=== PATIENT | female | born 1990 | race Caucasian/White ===

== ENCOUNTER → 2023-12-05 09:59 | Outpatient (BNVA) | payer OTHER, SELFPAY | PROVIDERS: PCP Family Medicine; Visit Provider Family Medicine | DX: Z34.90 Encounter for supervision of normal pregnancy, unspecified, unspecified trimester (principal) | CPT/HCPCS: 80307; 81000; 81025; 82306; 82607; 82746; 84144; 84425; 84443; 84590; 84591; 84597; 84630; 84702; 85025; 86592; 86705; 86706; 86762; 86803; 86850; 86900; 87086; 87340; 87491; 87591; 87624; 87806 ==

== ENCOUNTER → 2023-12-13 15:22 | Outpatient (BNVA) | payer OTHER, SELFPAY | PROVIDERS: PCP Family Medicine; Visit Provider Family Medicine | DX: O09.91 Supervision of high risk pregnancy, unspecified, first trimester (principal); Z3A.00 Weeks of gestation of pregnancy not specified | CPT/HCPCS: 84144 ==

== ENCOUNTER 2023-12-18 07:57 | Outpatient (CLI) | payer OTHER, SELFPAY ==
--- NOTE | 2023-12-18 08:15 | US_ITS ---
WS: [id number] EARLY OBSTETRICAL ULTRASOUND (<14 WEEKS). HISTORY: Dating US - next 1-2 weeks if possible COMPARISON: None available. Single intrauterine gestational sac is identified. Cardiac activity at 169 BPM. [place]-rump length inder sures 1.8 cm which corresponds to a gestation of 8w2d. Normal-appearing yolk sac and amnion demonstra dayana. No subchorionic hemorrhage. No free fluid. Both ovaries are identified. The LEFT ovary contains follicles/corpus luteal cyst. The largest measur es 2.7 x 2.8 x 2.1 cm. The smaller 2.5 x 2.1 x 1.9 cm. Normal vascularity. RIGHT ovary is normal size . US/US OB <=14 wk fetus w transvag IMPRESSION: 1. Single intrauterine gestation of 8w2d with an EDC of 07/27/2024. 2. Normal cardiac activity.
== END 2023-12-18 07:58 | disposition home or self-care (01) ==
LOC: RAD 07:57
PROVIDERS: PCP Family Medicine; Visit Provider Family Medicine
DX: Z3A.08 8 weeks gestation of pregnancy (principal); N83.12 Corpus luteum cyst of left ovary
CPT/HCPCS: 76801; 76817

== ENCOUNTER → 2023-12-27 13:38 | Outpatient (BNVA) | payer OTHER, SELFPAY | PROVIDERS: PCP Family Medicine; Visit Provider Family Medicine | DX: O09.91 Supervision of high risk pregnancy, unspecified, first trimester (principal); Z3A.00 Weeks of gestation of pregnancy not specified | CPT/HCPCS: 84144 ==

== ENCOUNTER → 2024-01-02 11:41 | Outpatient (BNVA) | payer OTHER, SELFPAY | PROVIDERS: PCP Family Medicine; Visit Provider Family Medicine | DX: O09.91 Supervision of high risk pregnancy, unspecified, first trimester (principal); Z3A.00 Weeks of gestation of pregnancy not specified | CPT/HCPCS: 84144 ==

== ENCOUNTER → 2024-02-09 12:29 | Outpatient (BNVA) | payer OTHER, SELFPAY | PROVIDERS: PCP Family Medicine; Visit Provider Family Medicine | DX: O09.91 Supervision of high risk pregnancy, unspecified, first trimester (principal); Z3A.00 Weeks of gestation of pregnancy not specified | CPT/HCPCS: 84144 ==

== ENCOUNTER → 2024-03-08 12:24 | Outpatient (BNVA) | payer OTHER, SELFPAY | PROVIDERS: PCP Family Medicine; Visit Provider Family Medicine | DX: O09.91 Supervision of high risk pregnancy, unspecified, first trimester (principal); R79.89 Other specified abnormal findings of blood chemistry | CPT/HCPCS: 84144 ==

== ENCOUNTER 2024-03-12 11:03 | Outpatient (CLI) | payer OTHER, SELFPAY ==
--- NOTE | 2024-03-12 11:15 | USR_ITS ---
PROCEDURE INFORMATION: Exam: US After First Trimester, Transabdominal Exam date and time: 03/12/2024 11:09 AM Age: 34 years old Clinical indication: Screening exam; Routine US, uterus; Additional info: Anatomy US - about 6 weeks from now LABS AND CLINICAL REPORTS: Gestational age (Established): 20 w 3 d Estimated due date (Established): 07/27/2024 TECHNIQUE: Imaging protocol: Real-time transabdominal obstetrical ultrasound of the maternal pelvis and a second or third trimester with image documentation. COMPARISON: US OB <=14 wk fetus w transvag 12/18/2023 8:25 AM FINDINGS: Gestation: Single live intrauterine gestation. heart rate: 145 bpm presentation and position: Vertex Placenta: Unremarkable. No subchorionic bleed. Placenta is anterior Amniotic fluid (Qualitative): Amniotic fluid is normal for gestational age. Amniotic fluid index: Normal amniotic fluid volume ANATOMY: midline falx: Normal/ cerebellum: Normal/ lateral ventricles: Normal/ cisterna magna: Normal/ choroid plexus: Normal/ face: Upper lip is Normal/ heart four-chamber view, heart size and position: Normal/ heart right ventricular outflow tract: Normal/ heart left ventricular outflow tract: Normal/ kidneys: Normal/ stomach: Normal/ urinary bladder: Normal/ spine: Normal/ Umbilical cord and insertion: Normal upper limbs: Normal/ lower limbs: Normal/ external genitalia: Gender determination male BIOMETRY: Gestational age (AUA): 20 weeks 3 days Estimated due date (AUA): 07/27/2024 Estimated weight: 355.7 g. EFW by AC, BPD, FL, HC, Hadlock 1985 Biparietal diameter (BPD): 4.81 cm. EGA (BPD) is 20 w 4 d. 54.5 % percentile Head circumference (HC): 18.01 cm. EGA (HC) is 20 w 3 d. 41.8 % percentile Abdominal circumference (AC): 15.26 cm. EGA (AC) is 20 w 3 d. 45.1 % percentile Femur length (FL): 3.34 cm. EGA (FL) is 20 w 3 d. 42.9 % percentile HC/AC: 1.18. (Normal range: 1.07 - 1.25) FL/HC: 18.55. (Normal range: 16.41 - 20.01) FL/BPD: 69.44 FL/AC: 21.89 MATERNAL: Uterus: Unremarkable. Cervix: Cervical length measures 5.8 cm Right ovary/adnexa: Obscured by lack of adequate acoustic window. Left ovary/adnexa: Obscured by lack of adequate acoustic window. Intraperitoneal space: No intraperitoneal free fluid. US/US OB >= 14 weeks fetus [id number] IMPRESSION: 1. Single living intrauterine gestation 2. Gestational age 20 weeks 3 days LUIS is 07/27/2024 3. Anterior placenta 4. Negative for anatomic deformity in the visible anatomy 5. Normal amniotic fluid volume
== END 2024-03-12 11:04 | disposition home or self-care (01) ==
LOC: RAD 11:04
PROVIDERS: PCP Family Medicine; Visit Provider Family Medicine
DX: O09.91 Supervision of high risk pregnancy, unspecified, first trimester (principal)
CPT/HCPCS: 76805

== ENCOUNTER → 2024-04-30 11:11 | Outpatient (BNVA) | payer OTHER, SELFPAY | PROVIDERS: PCP Family Medicine; Visit Provider Family Medicine | DX: O09.92 Supervision of high risk pregnancy, unspecified, second trimester (principal) | CPT/HCPCS: 82950 ==

== ENCOUNTER 2024-05-13 12:03 | Outpatient (CLI) | payer OTHER, SELFPAY ==
[2024-05-13 12:20] VITALS: RESP 18; TEMP 36.9
[2024-05-13 12:22] VITALS: BP 100/56; PULSE 82
[2024-05-13 12:34] VITALS: RESP 18; BMI 33.7
[2024-05-13 12:36] VITALS: BP 97/59; PULSE 81
[2024-05-13 12:51] VITALS: BP 94/55
[2024-05-13 12:59] VITALS: RESP 18
== END 2024-05-13 13:00 | disposition home or self-care (01) ==
LOC: OPOB 12:07 → OBGYN 12:14
PROVIDERS: PCP Family Medicine; Visit Provider Family Medicine
DX: O36.8190 Decreased fetal movements, unspecified trimester, not applicable or unspecified (principal); Z3A.00 Weeks of gestation of pregnancy not specified
CPT/HCPCS: 59025; 99211

== ENCOUNTER → 2024-05-27 11:56 | Outpatient (BNVA) | payer OTHER, SELFPAY | PROVIDERS: PCP Family Medicine; Visit Provider Family Medicine | DX: Z51.81 Encounter for therapeutic drug level monitoring (principal) | CPT/HCPCS: 85025 ==

== ENCOUNTER → 2024-07-01 10:20 | Outpatient (BNVA) | payer OTHER, SELFPAY | PROVIDERS: PCP Family Medicine; Visit Provider Family Medicine | DX: Z34.90 Encounter for supervision of normal pregnancy, unspecified, unspecified trimester | CPT/HCPCS: 87081 ==

== ENCOUNTER 2024-07-08 19:05 | Outpatient (CLI) | payer OTHER, SELFPAY ==
[2024-07-08 19:05] VITALS: BMI 35.2
[2024-07-08 19:33] VITALS: BP 114/65; PULSE 77
[2024-07-08 19:45] VITALS: BP 112/68; PULSE 79
[2024-07-08 19:55] VITALS: BP 112/68; PULSE 79; RESP 16; TEMP 36; O2SAT 98
== END 2024-07-08 20:00 | disposition home or self-care (01) ==
LOC: OPOB 19:09 → OBGYN 19:10
PROVIDERS: PCP Family Medicine; Visit Provider Family Medicine
DX: O26.899 Other specified pregnancy related conditions, unspecified trimester (principal); Z3A.00 Weeks of gestation of pregnancy not specified; R10.2 Pelvic and perineal pain; R10.9 Unspecified abdominal pain
CPT/HCPCS: 59025; 80053; 82306; 82607; 82746; 84425; 84443; 84590; 84591; 84597; 84630; 99211

== ENCOUNTER 2024-07-22 04:53 | Inpatient (IN) | payer OTHER, SELFPAY ==
--- NOTE | 2024-06-24 10:21 | ANES.PREANE2 ---
Pre-Anesthetic Assessment Height/Weight: Height 5 ft 5 in Preop Diagnosis: Planned Operation Date: 07/22/24 07:20 Proposed Procedures p Section 36052, O34.219(Not Applicable) - Aries Stanley MD Was Beta Zac taken within 24 hours: N/A Was Clonidine taken within 24 hours: N/A Social No alcohol and No tobacco Exam alert, oriented x 3, clear to auscultation bilaterally and regular rate & rhythm Airway Submandibular: within normal limits Cervical ROM: within normal limits Mallampati: Class II Dentition: false Anesthetic Plan ASA status: 2 Anesthesia: Regional (specify below) Other: G2, P1 here for epidural consult Denies any issues during Denies any cardiac or pulmonary issues Does not take anything besides vitamins Prior epidural without issues Plan to obtain lab work prior to spinal on the day of procedure Plan for routine spinal Medications/Allergies Home Medications Medication Instructions Recorded Confirmed Last Taken Type Multivitamin bariatric patch PO 12/05/23 06/10/24 Unknown History vit 168-iron 27 mg-folic cap PO 12/05/23 06/10/24 Unknown History acid 800 mcg-omega3 235 mg capsule (One-A-Day -1) Allergies Allergy/AdvReac Type Severity Reaction Status Date / Time No Known Allergies Allergy Verified 07/18/23 11:06 [facility] Anesthesia Surgical History Hx of tonsillectomy H/O carpal tunnel repair 2016 History of cholecystectomy 2009 Hx of knee surgery Both knees due to torn meniscus - 2009 and 2007 History of gastric bypass 2019 Hx of breast reduction, elective 2013 Hx of section Family History Mother Bone cancer Breast cancer, Onset Age: 33 Remission for 10 years then it came back - at age 58 in 2012 Father Hypertension Grandmother Diabetes mellitus, type 2 Hypertension Denies family history of Colon cancer Ovarian cancer Diabetes Heart disease Hypercholesteremia Uterine cancer Thyroid disease Stroke Social History Smoking and tobacco/nicotine status: never used tobacco/nicotine Alcohol intake: never Substance/Drug Use: never 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
[2024-07-22] VITALS (35 sets, daily range): BP systolic 96–126; BP diastolic 56–80; PULSE 61–96; RESP 14–18; TEMP 36.4–36.8; O2SAT 96–98; BMI 35.7
[2024-07-22 05:45] LABS: Basophils % 0.6 %; Eosinophils # 0.1 10^3/uL (0.0-0.8); Eosinophils % 1.5 %; Hematocrit 39.7 % (36-47); Lymphocytes # 1.8 10^3/uL (0.8-4.8); Lymphocytes % 25.4 %; Mean Corpuscular HGB Conc 33.8 g/dL (30-55); Mean Corpuscular Hemoglobin 28.1 pg (27-33); Mean Corpuscular Volume 83.2 fl (85-98); Mean Platelet Volume 10.8 fL (7.4-10.4); Monocytes # 0.3 10^3/uL (0.2-0.9); Monocytes % 4.7 %; Neutrophils # 4.61 10^3/uL (1.8-7.7); Neutrophils % 66.9 %; Nucleated Red Blood Cells % 0 %; Platelet Count 176 10^3/cmm (157-399); Red Blood Count 4.77 10^6/uL (3.85-5.65); Red Cell Distribution Width 13.2 % (12.1-15.1); White Blood Count 6.88 10^3/uL (3.29-11.43)
[2024-07-22] MEDS: famotidine 20 mg/2 mL INJ IVP (05:52)
[2024-07-22] MEDS: sodium chloride 0.9% 1,000 ML 999 ML IV (05:52)
[2024-07-22] MEDS: citric acid-sodium citrate 30 mL UDC PO (05:52)
[2024-07-22] MEDS: metoclopramide 5 mg/mL SDV 2 mL 10 MG IVP (05:52)
[2024-07-22] MEDS: ceFAZolin 2,000 mg SDV 2000 MG IVP (05:53)
--- NOTE | 2024-07-22 06:41 | P.HP_ITS ---
Providers/Chief Complaint 2 Admitting Physician: Aries Stanley MD Primary Care Provider: Aries Stanley MD Chief Complaint: C Section History of Present Illness Shagufta Ruiz is a 34 year old at 39.2 wks by 8wk US inconsistent with LMP. Preg is c/b h/o twins, h/o fertility treatment, h/o LTCS, recent miscarriage, PCOS, AMA, h/o gastric bypass. The patient presents to labor and delivery for a scheduled repeat low-transverse section. She is feeling well today. She does not plan to have a bilateral tubal ligation. She has no concerns. She denies any vaginal bleeding, leakage of fluid, fever, chest pain, cough, nausea, vomiting, diarrhea, constipation, dysuria. Medications/Allergies Home Medications Medication Instructions Recorded Confirmed Last Taken Type vit 168-iron 27 mg-folic cap PO 12/05/23 07/15/24 07/21/24 History acid 800 mcg-omega3 235 mg capsule (One-A-Day -1) Allergies Allergy/AdvReac Type Severity Reaction Status Date / Time nylon stitches Allergy ALGY-Hives Uncoded 07/22/24 05:31 PFSH Acute 2 PFSH: Surgical History Hx of tonsillectomy H/O carpal tunnel repair 2016 History of cholecystectomy 2009 Hx of knee surgery Both knees due to torn meniscus - 2009 and 2007 History of gastric bypass 2020 Hx of breast reduction, elective 2014 Hx of section Family History Mother Bone cancer Breast cancer, Onset Age: 33 Remission for 10 years then it came back - at age 58 in 2012 Father Hypertension Grandmother Diabetes mellitus, type 2 Hypertension Denies family history of Colon cancer Ovarian cancer Diabetes Heart disease Hypercholesteremia Uterine cancer Thyroid disease Stroke Social History Smoking and tobacco/nicotine status: never used tobacco/nicotine Alcohol intake: never Substance/Drug Use: never 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 Reproductive History: : 3 Vitals/I&O/Wt Last Vital Signs Pulse 76 07/22/24 06:11 BP 107/71 07/22/24 06:11 O2 Del Method Room Air 07/22/24 05:12 Weight last 48 hrs Weight 215 lb Physical Exam 2 Narrative: General: Alert and oriented x3 Eyes: Pupils equal round and reactive to light and accommodation Mouth: Mucous membranes moist, pharynx non-erythematous Cardiac: Regular rate and rhythm without murmurs Lungs: Clear to auscultation bilaterally without wheezes, crackles or rhonchi Abdomen: Soft, non-tender, fundus consistent with gestational age Extremities: Trace edema in the bilateral lower extremities Data 07/22/24 05:23 A&P Assessment and plan (1) Supervision of high risk , unspecified, third trimester: The patient is feeling well today. We discussed typical course for a repeat low-transverse section and potential risks. All questions were answered. The patient is in agreement with current plan of care. We will plan for a repeat low-transverse section. (2) Previous gastric bypass affecting in third trimester, antepartum: Attestations 2 Medical Necessity Statement*: The patient will be here for greater than 2 midnights due to routine intrapartum and management of section. Coding Level of Care Code Acute Code for Chg Fwd Diagnoses Supervision of high risk , unspecified, third trimester O09.93 Previous gastric bypass affecting in third trimester, antepartum O99.843
--- NOTE | 2024-07-22 07:01 | P.ANESUD_ITS ---
Pre-Anesthetic Update Pre-Anesthetic Assessment: Date of Surgery/Procedure: 07/22/24 Preop Jade gnosis: Planned Proposed Procedure: Operation Date: 07/22/24 07:20 Proposed Procedures p Section 28727, O34.219(Not Applicable) - Aries Stanley MD Any changes to Pre-Anesthetic Assessment?: No Last Intake: Intake Last Liquid Date 07/21/24 Last Liquid Time 23:00 Last Solid Date 07/21/24 Last Solid Time 23:00 Labs Last 48hrs: Short CBC 07/22/24 Range/Units 05:23 WBC 6.88 (3.29-11.43) 10^ 3/uL Hgb 13.40 (11.27-16.99) g/ dL Hct 39.7 (36-47) % MCV 83.2 L (85-98) fl Plt Count 176 (157-399) 10^3/c mm Neut % (Auto) 66.9 % Neut # (Auto) 4.61 (1.8-7.7) 10^3/u L Blood Bank 07/22/24 05:23 Blood Type O Positive Rho(D) Type Rh positive Antibody Screen Negative Vitals: Pulse Rate 96 07/22/24 06:56 Pulse Rhythm Regular 07/22/24 05:12 Pulse Strength 3+ Normal 07/22/24 05:12 Respiratory Effort Spontaneous, Non- Labored 07/22/24 05:12 Respiratory Depth Normal 07/22/24 05:12 Respiratory Patter n Normal 07/22/24 05:12 Blood Pressure 125/80 07/22/24 06:56 Oxygen Delivery Me thod Room Air 07/22/24 05:12 Exam: Pre-Anes Outpt Exam: alert, oriented x 3, clear to auscultation bilaterally and regular rate & rhythm Cardiac Studies: No Data to Display
--- NOTE | 2024-07-22 08:53 | PM.OP ---
Operative Report Date of procedure: July 22, 2024 Pre-op diagnosis: 1. Intrauterine at 39.2 weeks gestation 2. History of twins 3. History of low-transverse section 4. PCOS 5. Advanced maternal age 6. History of gastric bypass Post-op diagnosis: 1. Intrauterine status post repeat low-transverse section at 39.2 weeks gestation 2. History of twins 3. History of low-transverse section 4. PCOS 5. Advanced maternal age 6. History of gastric bypass 7. Delivery of healthy male weighing 7 pounds 3 ounces with Apgars of 8 and 9 Post-op findings: Moderately tight true knot in umbilical cord with good Worthon's Jelly Procedure done: Repeat low-transverse section Surgeon: Aries Stanley MD Estimated blood loss (mL): 500 Complications: None Brief History: Shagufta Ruiz is a 34 year old G3 now P2013 status post repeat low-transverse section at 39.2 wks by 8wk US inconsistent with LMP. Preg is c/b h/o twins, h/o fertility treatment, h/o LTCS, recent miscarriage, PCOS, AMA, h/o gastric bypass. The patient presented to labor and delivery for a scheduled repeat low-transverse section. She was feeling well today without concerns. Procedure: After informed consent was obtained, the patient was taken to the operating room and the patient was prepped and draped in a normal sterile fashion in the dorsal supine position.? A spinal was placed and adequate anesthesia was obtained.? At 7:24 AM on 07/22/2024 a Pfannenstiel skin incision was made and carried through to the underlying layer of fascia using a scalpel.? The fascial incision was then extended laterally using curved Mayos.? The fascia was then grasped with Rishi clamps and the underlying rectus muscles were dissected off taking care to avoid injury to the underlying tissues.? The peritoneum was entered bluntly with Metzenbaums to make a small hole, followed by one digit.? It was then bluntly.? The bladder blade was placed and the vesicouterine peritoneum was well below the lower uterine segment of the uterus.? The uterine incision was made in the lower uterine segment in a transverse fashion with the scalpel at 7:31 AM on 07/22/2024.? The amniotic membrane was entered bluntly and a large amount of clear fluid was noted.? The infant was in the transverse position. The infant's head was on the maternal left. The head was manipulated to the opening of the uterine incision and uterine pressure was placed and the infant's head delivered without complication at 7:32 AM on 07/22/2024.? There was no nuchal cord.? A moderately tight true knot was noted in the mid cord. The cord was healthy in appearance. The mouth and nose were suctioned.? The rest of the infant delivered without difficulty.? The took a breath immediately upon delivery.? The cord was clamped and cut and the was handed to the awaiting pediatric nurses.? The placenta was then manually expressed.? The uterus was exteriorized from the abdomen.? A wet lap was used to clear the uterus of clots and debris.? The bladder blade was reinserted and the uterine incision was closed using 0 chromic in a running locking fashion.? The uterus was noted to be firm.? A second layer of the same suture was used in the same manner.? For the sake of obtaining good hemostasis, a third layer of 0 chromic was placed in a running fashion. Excellent hemostasis was obtained. Next the posterior cul-de-sac was inspected and was cleared of any blood. The gutters were cleared of any further clots and debris and the uterine incision was again inspected and hemostasis was noted.? The subfascial tissue was inspected for hemostasis and the peritoneum was re-approximated using 2-0 plain in a running fashion.? The fascia was then re-approximated using 0 Vicryl in a running fashion.? The subcutaneous tissue was inspected for hemostasis.? Dyana's fascia was then re-approximated using 3-0 plain in a running fashion.? Good hemostasis was noted.? The subcutaneous tissue was then re-approximated using a subcuticular stitch.? The patient tolerated the procedure well and was recovered in stable condition.? Estimated blood loss was 500 mL. Urine in the Davis catheter was clear. The patient was taken to recovery in good condition.
[2024-07-22] MEDS: dextrose 5%-sod chloride 0.45% 1,000 ML 125 ML IV (09:40)
[2024-07-22] MEDS: ketorolac 30 mg/mL INJ IVP ×3 (10:05→22:30)
[2024-07-22] MEDS: ondansetron 2 mg/ML SDV 2 mL 4 MG IVP ×2 (10:25→14:28)
--- NOTE | 2024-07-22 12:14 | ANE.PACU2 ---
Inpatient post-anesthesia follow up: Airway intact: Yes Vital signs: Temperature 97.7 F Pulse Rate 68 Respiratory Rate 16 Blood Pressure 114/76 Pulse Oximetry 98 Oxygen Delivery Me thod Room Air Oxygen Flow Rate Fraction of Inspir ed Oxygen Hydration adequate: Yes Nausea and vomiting: No Pain level: 1 Mental status: Baseline
--- NOTE | 2024-07-22 16:55 | PC.NURSE ---
Patient ambulated 2 laps around OB unit with RN and at this time. Patient tolerated ambulation very well.
[2024-07-22] MEDS: docusate sodium 100 mg Capsule PO (18:44)
[2024-07-22 22:17] LABS: Hematocrit 35.6 % (36-47); Mean Corpuscular Hemoglobin 28.5 pg (27-33); Mean Corpuscular Volume 83.8 fl (85-98); Mean Platelet Volume 10.5 fL (7.4-10.4); Platelet Count 153 10^3/cmm (157-399); Red Blood Count 4.25 10^6/uL (3.85-5.65); Red Cell Distribution Width 13.2 % (12.1-15.1); White Blood Count 10.12 10^3/uL (3.29-11.43)
[2024-07-23] MEDS: hyDROXYzine 25 mg Capsule 50 MG PO (01:25)
[2024-07-23 05:58] VITALS: BP 113/70; PULSE 96
[2024-07-23] MEDS: docusate sodium 100 mg Capsule PO ×2 (11:11→17:11)
[2024-07-23] MEDS: ibuprofen 800 mg tablet PO ×3 (11:11→20:55)
[2024-07-23 11:13] VITALS: BP 130/71; PULSE 127
[2024-07-23] MEDS: hydrocortisone 2.5% cream 28 gm 1 APPLIC TOPICAL (11:22)
[2024-07-23 15:48] VITALS: BP 110/70; PULSE 100
[2024-07-23 15:50] VITALS: RESP 15; TEMP 36.8
--- NOTE | 2024-07-23 18:43 | P.PN_ITS ---
Subjective 2 Subjective: The patient is ambulating, voiding, passing gas and tolerating food by mouth. Her pain is well-controlled with Motrin alone. Her bleeding is decreasing well. She feels like she is doing well after surgery. Vitals/I&O/Wt Last Vital Signs Temp 98.2 F 07/23/24 15:50 Pulse 100 07/23/24 15:48 Resp 15 07/23/24 15:50 BP 110/70 07/23/24 15:48 Pulse Ox 98 07/22/24 22:17 O2 Del Method Room Air 07/22/24 22:17 07/23/24 07/23/24 07/23/24 06:59 14:59 22:59 Output Total 1376 Balance - 1246.917 Weight last 48 hrs Weight 215 lb Physical Exam 2 Narrative: General: Alert and oriented x3 Cardiac: Regular rate and rhythm without murmurs Lungs: Clear to auscultation bilaterally without wheezes, crackles or rhonchi Abdomen: Soft, mild tenderness over uterus. The uterus is firm and 2 cm below the umbilicus. Incision is clean and dry without signs of infection or dehiscence. Extremities: Trace edema in the bilateral lower extremities Skin: There is a rash over the abdominal wall at the location of the adhesive used for the surgical window as well as from the foam tape used to hold up her abdomen. No blisters noted at this point. Urinary Catheter Management: Davis: Cath Placed During This Visit: yes, but has since been removed by the nurse Reason for Continuing Indwelling Catheter: Decision to DC Catheter Urinary Catheter Date of Insertion: 07/22/24 Urinary Catheter Time of Insertion: 07:15 Date Urinary Catheter Removed: 07/22/24 Time Urinary Catheter Discontinued: 16:15 Data 07/22/24 22:05 A&P Assessment and plan (1) Status post section: The patient is doing well overall at this time. She does have a rash secondary to the adhesive on the surgical window and from the foam tape. Continue with hydrocortisone topically for this. No signs of infection at this time. Routine discharge instructions were discussed as well as postsurgical care instruction. If the patient continues to do well, we will plan for discharge home tomorrow. Attestations 2 Medical Necessity Statement*: The patient is doing well overall at this time and her stay will cross 2 midnights. I confirmed that it is medically necessary for her to be admitted and our goal will be for her to be discharged home tomorrow. Coding Level of Care Code Acute Code for Chg Fwd Diagnoses Status post section Z98.891
[2024-07-23 22:34] VITALS: BP 118/72; PULSE 92
[2024-07-24 05:37] VITALS: BP 109/68; PULSE 99
[2024-07-24] MEDS: acetaminophen 325 mg Tablet 650 MG PO (05:54)
--- NOTE | 2024-07-24 08:43 | PM.DCS ---
Discharge Providers Date of Admission: 07/22/24 04:53 Date of Discharge: July 24, 2024 Attending Provider at Admission: Aries Stanley MD Attending Provider at Discharge: Aries Stanley MD Primary Care Provider: Aries Stanley MD Diagnoses at Discharge Discharge Diagnosis (1) Status post section: Status: Acute Other Information Additional DC diagnoses/information: 1. Intrauterine status post repeat low-transverse section at 39.2 weeks gestation 2. History of twins 3. History of low-transverse section 4. PCOS 5. Advanced maternal age 6. History of gastric bypass 7. Delivery of healthy male weighing 7 pounds 3 ounces with Apgars of 8 and 9 Reason for Visit Reason for Visit: C Section Brief History: Shagufta Ruiz is a 34 year old G3 now P2013 status post repeat low-transverse section at 39.2 wks by 8wk US inconsistent with LMP. Preg is c/b h/o twins, h/o fertility treatment, h/o LTCS, recent miscarriage, PCOS, AMA, h/o gastric bypass. The patient presented to labor and delivery for a scheduled repeat low-transverse section. She was feeling well at the time of presentation. Hospital Course Hospital Course The patient had a repeat low-transverse section that was uncomplicated. She did not have any significant bleeding concerns. Her pain has been well-controlled with Motrin alone. The patient's bleeding is decreasing well. She is ambulating, voiding, passing gas and tolerating food by mouth. Routine discharge instructions were discussed including care for her incision site and precautions to watch for as well as lifting restrictions. All questions were answered. We will plan to follow-up with the patient at 2 weeks and 6 weeks . She should call if she is having concerns prior to this. At this time the patient and her are in agreement with the current plan of care. Physical Exam Narrative: General: Alert and oriented x3 Cardiac: Regular rate and rhythm without murmurs Lungs: Clear to auscultation bilaterally without wheezes, crackles or rhonchi Abdomen: Soft, mild tenderness over uterus. The uterus is firm and 2 cm below the umbilicus. Incision is clean and dry without signs of infection or dehiscence. Extremities: Trace edema in the bilateral lower extremities Skin: There is a rash over the abdominal wall at the location of the adhesive used for the surgical window as well as from the foam tape used to hold up her abdomen. No blisters noted at this point. Urinary Catheter Management: Davis: Cath Placed During This Visit: yes, but has since been removed by the nurse Reason for Continuing Indwelling Catheter: Decision to DC Catheter Urinary Catheter Date of Insertion: 07/22/24 Urinary Catheter Time of Insertion: 07:15 Date Urinary Catheter Removed: 07/22/24 Time Urinary Catheter Discontinued: 16:15 Discharge Data Studies Completed and Pending Laboratory Results WBC 10.12 10^3/uL (3.29-11.43) 07/22/24 22:05 RBC 4.25 10^6/uL (3.85-5.65) 07/22/24 22:05 Hgb 12.10 g/dL (11.27-16.99) 07/22/24 22:05 Hct 35.6 % (36-47) L 07/22/24 22:05 MCV 83.8 fl (85-98) L 07/22/24 22:05 MCH 28.5 pg (27-33) 07/22/24 22:05 MCHC 34.0 g/dL (30-55) 07/22/24 22:05 RDW 13.2 % (12.1-15.1) 07/22/24 22:05 Plt Count 153 10^3/cmm (157-399) L 07/22/24 22:05 MPV 10.5 fL (7.4-10.4) H 07/22/24 22:05 Neut % (Auto) 66.9 % 07/22/24 05:23 Lymph % (Auto) 25.4 % 07/22/24 05:23 Mcculloch % (Auto) 4.7 % 07/22/24 05:23 Eos % (Auto) 1.5 % 07/22/24 05:23 Baso % (Auto) 0.6 % 07/22/24 05:23 Neut # (Auto) 4.61 10^3/uL (1.8-7.7) 07/22/24 05:23 Lymph # (Auto) 1.8 10^3/uL (0.8-4.8) 07/22/24 05:23 Mcculloch # (Auto) 0.3 10^3/uL (0.2-0.9) 07/22/24 05:23 Eos # (Auto) 0.1 10^3/uL (0.0-0.8) 07/22/24 05:23 Baso # (Auto) 0.0 10^3/uL (0.0-0.1) 07/22/24 05:23 Nucleated RBC % (auto) 0 % 07/22/24 05:23 Nucleated RBCs # 0.0 /100WBC 07/22/24 05:23 Blood Type O Positive 07/22/24 05:23 Rho(D) Type Rh positive 07/22/24 05:23 Antibody Screen Negative 07/22/24 05:23 Vitals Last Vital Signs Temp 98.2 F 07/23/24 15:50 Pulse 99 07/24/24 05:37 Resp 15 07/23/24 15:50 BP 109/68 07/24/24 05:37 Pulse Ox 98 07/22/24 22:17 O2 Del Method Room Air 07/22/24 22:17 Discharge Plan Discharge Patient Disposition: Home Condition: Good Prescriptions: New ferrous sulfate 325 mg (65 mg iron) Tablet,Delayed Release (Dr/Ec) 325 mg PO BIDWM Qty: 30 0RF ibuprofen 800 mg Tablet 800 mg PO TID Qty: 60 0RF triamcinolone acetonide 0.1 % cream 1 applic topical DAILY PRN (Reason: itching) Qty: 80 0RF Continued One-A-Day -1 27 mg iron- 800 mcg-235 mg capsule PO Discharge Orders: Discharge Order (Routine); Ordered 07/24/24 Ordered By: Aries Stanley Referrals: Aries Stanley MD [Primary Care Provider] - 2 weeks (Please make an appointment for 2 weeks and 6 weeks .) Discharge Diet: Regular Discharge Activity: Limit activity as instructed Patient Instructions: Opioid Safety Activity Restrictions/Additional Instructions: Do not lift anything heavier than your infant in the car seat for the first 3 weeks, then gradually increase to full lifting at 6 weeks . If you have any concern for infection in your incision site, please seek immediate medical attention. Nothing per vagina for 6 weeks. Showers are recommended instead of baths for the first 6 weeks. You may use triamcinolone cream to help with the rash on your abdomen. Discharge Attestations Time Spent in Discharge Care*: greater than 30 min Quality Metrics Clinical Quality Measures [ No reported AMI, CVA or VTE this stay] Coding Level of Care Code Acute Code for Chg Fwd Diagnoses Status post section Z98.891
[2024-07-24] MEDS: ibuprofen 800 mg tablet PO (10:01)
[2024-07-24] MEDS: docusate sodium 100 mg Capsule PO (10:01)
[2024-07-24 10:13] VITALS: BP 117/70; PULSE 94
[2024-07-24 10:45] VITALS: BP 117/70; PULSE 94; RESP 16; TEMP 37.1; O2SAT 98
== END 2024-07-24 10:45 | disposition home or self-care (01) | DRG 788 ==
PROVIDERS: Admitting Provider Family Medicine; PCP Family Medicine; Visit Provider Family Medicine
PROC: 10D00Z1 Extraction of Products of Conception, Low, Open Approach (ICD-10-PCS; CPT 59514; principal; 2024-07-22 07:00)
DX: O34.211 Maternal care for low transverse scar from previous cesarean delivery (principal); O99.284 Endocrine, nutritional and metabolic diseases complicating childbirth; E28.2 Polycystic ovarian syndrome; O69.2XX0 Labor and delivery complicated by other cord entanglement, with compression, not applicable or unspecified; Z3A.39 39 weeks gestation of pregnancy; Z37.0 Single live birth; Z98.84 Bariatric surgery status
CPT/HCPCS: 36415; 51702; 59409; 85025; 85027; 86850; 86900; 96374; 96376; 98960; J0690; J1200; J1885; J2274; J2371; J2405; J2765; J3010; J3490; J7030; J7799

== ENCOUNTER → 2024-09-12 11:23 | Outpatient (BNVA) | payer OTHER, SELFPAY | PROVIDERS: PCP Family Medicine; Visit Provider Nurse Practitioner Women's Health | DX: Z30.014 Encounter for initial prescription of intrauterine contraceptive device (principal) | CPT/HCPCS: 81025 ==

== ENCOUNTER 2025-07-14 12:00 | Outpatient (RCR) | payer OTHER, SELFPAY | END 2025-07-16 23:59 | disposition home or self-care (01) | LOC: WPT 12:00 | PROVIDERS: Visit Provider Orthopaedic Surgery | DX: M54.9 Dorsalgia, unspecified (principal); M25.512 Pain in left shoulder | CPT/HCPCS: 97110; 97112; 97140; 97161; 97530 ==